=== PATIENT | male | born 1995 | race Caucasian/White ===

== ENCOUNTER 2017-05-19 21:03 | Emergency (ER) | payer BC ==
[2017-05-19 21:11] VITALS: BMI 24.2
--- NOTE | 2017-05-19 21:35 | DR.GENAD ---
HPI - PCP Primary Care Physician: MIREILLE HODGSON - Complaint/Symptoms Chief Complaint Doctors Comments: Patient states that he has just come off a cruise and it feels like something is stuck in his throat. Chief Complaint:: FEELS LIKE SOMETHING STUCK IN THROAT X 2 DAYS, Self Treatment fo Chief Complaint: DRINKING WATER - Source History Provided: Patient, Parent - Mode of Arrival Mode of Arrival: Ambulatory - Timing Onset of Chief Complaint: 05/17/17 PMH - PMH Past Medical History: No Past Surgical History: Yes Past Surgical History Comment: MYRINGOTOMY - Family History History of Family Medical Conditions: Yes Family Medical History: Diabetes Mellitus Family Medical History Comment: MOTHER - Social History Does patient currently use any type of tobacco product: No Have you used tobacco products in the last 12 months: No Type of Tobacco Use: None Does any household member use tobacco: No Alcohol Use: Occasionally Do you use any recreational Drugs:: No Lives With: Family Lives Where: Home - infectious screening In the last 2 months have you had wt loss of >10#?: NO Have you had fever, night sweats or hemotysis?: No Have you traveled outside the country in the last 6 months?: No Isolation: Standard ROS - Review of Systems Eyes: No Symptoms Reported ENTM: No Symptoms Reported Respiratoy: No Symptoms Reported Cardiovascular: No Symptoms Reported Gastrointestinal/Abdominal: No Symptoms Reported Genitourinary: No Symptoms Reported Neurological: No Symptoms Reported Musculoskeletal: No Symptoms Reported Integumentary: No Symptoms Reported Hematologic/Lymphatic: No Symptoms Reported Endocrine: No Symptoms Reported Psychiatric: No Symptoms Reported All Other Systems: Reviewed and Negative PE - Vital Signs Vitals: Temperature 98.6 F Pulse Rate 76 Respiratory Rate 16 Blood Pressure 120/65 O2 Sat by Pulse Oximetry 100 - General General Appearance: Alert, In No Apparent Distress - Head Head Exam: Normal Inspection, Atraumatic - Eyes Eye exam: Normal Appearance, PERRL, EOMI - ENT ENT Exam: Normal Exam External Ear Exam: Normal External Inspection TM/Canal Exam: Bilateral Normal Nose Exam: Normal Nose Exam, Sinus Tenderness Mouth Exam: Normal Inspection Throat Exam: Normal Inspection - Neck Neck Exam: Normal Inspection, Full ROM - Chest Chest Inspection: Normal Inspection, Symmetric Chest Wall Rise - Respiratory Respiratory Exam: Normal Lung Sounds Bilat Respiratory Exam: Bilateral Clear to Auscultation - Cardiovascular Cardiovascular Exam: Regular Rate, Normal Rhythm - Abdominal Exam Abdominal Exam: Normal Inspection, Normal Bowel Sounds Abdominal Tenderness: negative: RUQ, RLQ, LUQ, LLQ, Epigastrium, Suprapubic, Diffuse, Mild, Moderate, Severe, Other - Extremities Extremities Exam: Normal Inspection - Back Back Exam: Normal Inspection, Full ROM - Neurologic Neurological Exam: Alert, Oriented X3, CN II-XII Intact - Psychiatric Psychiatric Exam: Normal Affect - Skin Skin Exam: Warm, Dry ROR - XRAY XRAY Interpreted by: Radiologist (Soft tissue Lat neck: The prevertebral soft tissues are unremarkable in their appearance. No evidence for foreign body can be identified. The hypopharynx and distal airway appear unremarkable. The bony cervical spine is grossly unremarkable. Impression: negative exam) - Diagnosis Discharge Problem: Negative Soft tissue exam neck exam, History of foreign body in throat - Discharge Plan Condition: Stable - Follow ups/Referrals Follow ups/Referrals: GOKUL KENDRICK [Primary Care Provider] - 3 days - Instructions
--- NOTE | 2017-05-19 22:13 | RAD ---
HISTORY: 22-year-old male feels like something is stuck in his throat Study: Frontal lateral views of the soft tissues of the neck Comparison: None. The prevertebral soft tissues are unremarkable in their appearance. No evidence for foreign body can be identified. The hypopharynx and distal airway appear unremarkable. The bony cervical spine is g rossly unremarkable. IMPRESSION: 1. Negative exam. Reported By:
[2017-05-19 23:07] VITALS: BP 120/73
== END 2017-05-19 23:00 | disposition home or self-care (01) ==
LOC: ER 21:17
DX: R09.89 Other specified symptoms and signs involving the circulatory and respiratory systems (principal)
CPT/HCPCS: 70360; 99282